=== PATIENT | female | born 2005 | race Caucasian/White ===

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

== ENCOUNTER → 2023-10-25 11:57 | Outpatient (CLI) | payer OTHER, SELFPAY ==
[2017-07-26 12:55] VITALS: BMI 25.0
== END ==
PROVIDERS: PCP Family Medicine; Visit Provider Nurse Practitioner Family
DX: J02.9 Acute pharyngitis, unspecified (principal)
CPT/HCPCS: 87070